=== PATIENT | female | born 1970 | race African-American/Black ===

== ENCOUNTER 2022-12-01 10:51 | Emergency (ER) | payer SELFPAY ==
[~2022-12-01] VITALS: Ht 162.6 cm; Wt 59.0 kg
[2022-12-01 10:54] VITALS: BP 146/67
[2022-12-01] MEDS ORDERED: AMOX50SU15 MT (13:52)
[2022-12-01] MEDS ORDERED: IBUP-2029 MT (13:52)
[2022-12-01] MEDS ORDERED: TETANUS, DIPHTHERIA, PERTUSSIS VAC/PF 0.5ML (>10YR OLD) IM ONE (14:00)
== END 2022-12-01 14:55 | disposition home or self-care (01) ==
LOC: ER 11:42
DX: S61.551A Open bite of right wrist, initial encounter (principal); S41.052A Open bite of left shoulder, initial encounter; S81.051A Open bite, right knee, initial encounter; W54.0XXA Bitten by dog, initial encounter; Y93.89 Activity, other specified; Y92.89 Other specified places as the place of occurrence of the external cause; Y99.8 Other external cause status
CPT/HCPCS: 90471; 90715; 99283; Z7610